=== PATIENT | female | born 1990 | race Caucasian/White ===

== ENCOUNTER 2024-11-15 21:14 | Emergency (ER) | payer OTHER ==
--- OUTSIDE RECORDS SUMMARY | 2024-11-15 21:17 | XMS REPORT | Continuity of Care Document ---
Author Name Unknown Address [address] [facility] [address] [place] [address] [facility] thconnect Address [address] [facility]. 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 Name Role Phone Anselmo Ying MD Primary Care Physician [phone] JILLIAN KNOX Attending Clinician Kesha Ochoa MD, Lottie Attending Clinician [phone] Dash Johnson CMA Attending Clinician Katie Erazo MA Attending Clinician Kesha Rodriguez RN, Gino Attending Clinician ANSELMO Dang Attending Clinician Unavailable MILTON YIN Attending Clinician Unavailable Libby Flores APRN Attending Clinician [phone] Zakiya Lima RN Attending Clinician Unavailable ELLEN AHN Attending Clinician Unavailable Jeannette Keating Attending Clinician Unavailable Ho_K Attending Clinician Unavailable REX LEYVA Attending Clinician Unavailable TIM WHITE Attending Clinician Unavailable Ho_K Admitting Clinician Unavailable Physician, No Primary or Family Admitting Clinic noel Unavailable Payers Payer Name Policy Type Policy Number Effective Date Expirati on Date Source [place] [id number] 2024 00:00:00 2024 00:00:00 [facility] MEDICAID [id number] 2024 00:00:00 OPEN ACCESS AET[employer] SELECT EPO [id number] 2022 00:00:00 OTHER CI [id number] [employer]ET[employer] [id number] 2021 00:00:00 [employer] Hmo [id number] 2021 00:00:00 [facility] Medicaid [id number] 2011 00:00:00 [facility] Problems Condition Name Condition Details Condition Category Status Onset Date Resolution Date Last Treatment Date Treating Clinician Comments Source No known active problems No known active problems Disease [facility] Pain of upper abdomen Problem Active [facility] Allergies, Adverse Reactions, Alerts Allergy Name Allergy Type Status Severity Reaction(s) Onset Date Inactive Date Treating Clinician Comments Source No Known Allergie s DA Active U 04-06 00:00: 00 [facility] No Known Allergie s DA Active U 04-06 00:00: 00 [facility] No Known Allergie s DA Active U 05-17 00:00: 00 [facility] No Known Drug Allergie s DA Active [facility] Social History Social Habit Start Date Stop Date Quantity Comments Source Gender identity 2024-08-17 12:26:14 Identifies as female gender (finding) [facility] Sexual orientation 2024-08-17 12:26:14 [facility] History of tobacco use [facility] ASSERTION Not [facility] History of Occupation [facility] History of Social function 2024-08-17 00:00:00 2024-08-17 00:00:00 [facility] Education 2024-08-17 00:00:00 2024-08-17 00:00:00 21 [facility] Tobacco use and exposure 2024-08-17 00:00:00 2024-08-17 00:00:00 Smokeless tobacco non-user [facility] Alcoholic beverage intake 2024-08-17 00:00:00 2024-08-17 00:00:00 .57 /d [facility] Sex 2024-06-26 14:45:59 2024-06-26 14:45:59 Female (finding) [facility] Exposure to SARS-CoV-2 (event) 2022-11-30 00:00:00 2022-12-10 13:10:00 Not sure [facility] Alcohol intake 2022-12-10 00:00:00 2022-12-10 00:00:00 Current drinker of alcohol (finding) [facility] History SDOH Alcohol Frequency 2022-10-23 00:00:00 2022-10-23 00:00:00 5 [facility] History SDOH Alcohol Std Drinks 2022-10-23 00:00:00 2022-10-23 00:00:00 1 [facility] History SDOH Alcohol Binge 2022-10-23 00:00:00 2022-10-23 00:00:00 1 [facility] Sex assigned at 1990 00:00:00 1990 00:00:00 [facility] Smoking Status Start Date Stop Date Source Never smoked tobacco [facility] Medications Ordered Medication Name Filled Medication Name Start Date Stop Date Current Medication? Ordering Clinician Indication Dosage Frequency Signature (SIG) Comments Components Source omeprazole (PriLOSEC) [address] capsule omeprazole (PriLOSEC) [address] capsule 2023-10 00:00: 00 09-01 23:59 :00 Yes [id number] 20mg Q.5D Take 1 capsule (20 mg) by mouth in the morning and at bedtime for 14 days. Do not crush or chew. [facility] metroNIDAZO LE (Flagyl) 500 MG tablet metroNIDAZO LE (Flagyl) 500 MG tablet 2023-10 00:00: 00 09-01 23:59 :00 No [id number] 500mg Q.[id number] 3D Take 1 tablet (500 mg) by mouth in the morning, at noon, and at bedtime for 14 days. [facility] clarithromy pooja (Biaxin) 500 MG tablet clarithromy pooja (Biaxin) 500 MG tablet 2023-10 00:00: 00 09-01 23:59 :00 No [id number] 500mg Q.5D Take 1 tablet (500 mg) by mouth in the morning and at bedtime for 14 days. [facility] fluticasone (Flonase) 50 MCG/ACT nasal spray fluticasone (Flonase) 50 MCG/ACT nasal spray 2023-10 00:00: 00 08-17 23:59 :00 No [id number] 2{spray } QD Administer 2 sprays into each nostril in the morning. Shake gently. Before first use, prime pump. After use, clean tip and replace cap.. [facility] lisinopril 10 MG tablet lisinopril 10 MG tablet 2023-10 00:00: 00 02-13 23:59 :00 No 10mg QD Take 1 tablet (10 mg) by mouth in the morning. [facility] benzonatate (Tessalon) 100 MG capsule benzonatate (Tessalon) 100 MG capsule 2023-10 00:00: 00 09-16 23:59 :00 No [id number] 100mg Q.[id number] 3D Take 1 capsule (100 mg) by mouth if needed in the morning, at noon, and at bedtime for cough. Do not crush or chew. [facility] cetirizine (ZyrTEC) 10 MG tablet 01-07 00:00: 00 Yes [id number] TAKE 1 TABLET BY MOUTH 1 TIME EACH [address] [facility] fluticasone (Flonase) 50 MCG/ACT nasal spray 12-10 00:00: 00 12-10 05:59 :00 No [id number] 1{spray } Q.5D Administer 1 spray into each nostril in the morning and 1 spray in the evening. Shake gently. Before first use, prime pump. After use, clean tip and replace cap.. [facility] cetirizine (ZyrTEC) 10 MG tablet 12-10 00:00: 00 01-10 04:59 :00 No [id number] 10mg QD Take 1 tablet (10 mg total) by mouth 1 (one) time each day. [facility] olopatadine (Pataday) 0.2 % ophthalmic solution 12-10 00:00: 00 12-16 05:59 :00 No [id number] 1[drp] QD Administer 1 drop into the left eye 1 (one) time each day for [address] [facility] lisinopril 5 MG tablet 10-23 00:00: 00 01-22 04:59 :00 No [id number] 5mg QD Take 1 tablet (5 mg total) by mouth 1 (one) time each day. [facility] Promethazin e Hcl Promethazin e Hcl 05-05 01:33: 00 Yes 25 Every 6 Hours [facility] Famotidine (Pepcid) 20 Mg TABLET Famotidine (Pepcid) 20 Mg TABLET 05-05 01:23: 00 Yes 20 Every 12 Hours [facility] Immunizations Ordered Immunization Name Filled Immunization Name Date Status Comments Source Influenza, injectable, quadrivalent, preservative free (afluria, fluarix, flulaval, fluzone) 2022-10-23 00:00:00 Completed [facility] 2022-10-23 00:00:[address] [facility] Influenza, injectable, quadrivalent, preservative free (afluria, fluarix, flulaval, fluzone) 2022-10-23 00:00:00 Completed [facility] Tdap 2022-10-23 00:00:[address] [facility] Influenza, injectable, quadrivalent, preservative free (afluria, fluarix, flulaval, fluzone) 2022-10-23 00:00:00 Completed [facility] 2022-10-23 00:00:[address] [facility] Influenza, injectable, quadrivalent, preservative free (afluria, fluarix, flulaval, fluzone) 2022-10-23 00:00:00 Completed [facility] 2022-10-23 00:00:00 Completed [facility] Influenza, injectable, quadrivalent, preservative free (afluria, fluarix, flulaval, fluzone) 2022-10-23 00:00:00 [facility]pleted [facility] Tdap 2022-10-23 00:00:00 Completed [facility] Influenza, injectable, quadrivalent, preservative free (afluria, fluarix, flulaval, fluzone) 2022-10-23 00:00:00 Completed [facility] Tdap 2022-10-23 00:00:00 Completed [facility] Influenza, injectable, quadrivalent, preservative free (afluria, fluarix, flulaval, fluzone) 2022-10-23 00:00:00 Completed [facility] Tdap 2022-10-23 00:00:00 Completed [facility] Influenza, injectable, quadrivalent, preservative free (afluria, fluarix, flulaval, fluzone) Unknown Completed [facility] Tdap Unknown Completed [facility] Vital Signs Vital Name Observation Time Observation Value Comments S ource Systolic blood pressure 2024-08-17 12:49:00 143 mm[Hg] [facility] Diastolic blood pressure 2024-08-17 12:49:00 94 mm[Hg] [facility] [employer] Heart rate 2024-08-17 12:02:00 72 /min [facility] Body temperature 2024-08-17 12:02:00 36.83 Ashley [facility] Respiratory rate 2024-08-17 12:02:00 18 /min [facility] Body height 2024-08-17 12:02:00 158.5 cm [facility] Body weight 2024-08-17 12:02:00 81.829 kg [facility] BMI 2024-08-17 12:02:00 32.57 kg/m2 [facility] Oxygen saturation in Arterial blood by Pulse oximetry 2024-08-17 12:02:00 98 /min [facility] Systolic blood pressure 2022-10-23 17:08:00 138 mm[Hg] [facility] Diastolic blood pressure 2022-10-23 17:08:00 82 mm[Hg] [facility] Heart rate 2022-10-23 17:08:00 95 /min [facility] Body temperature 2022-10-23 17:08:[address] [facility] Body height 2022-10-23 17:08:00 160 cm [facility] weight 2022-10-23 17:08:00 79.742 kg [facility] BMI 2022-10-23 17:08:00 31.14 kg/m2 [facility] Oxygen saturation in Arterial blood by Pulse oximetry 2022-10-23 17:08:00 99 /min [facility] Oxygen saturation by Pulse oximetry 2022-05-05 01:34:00 99 /min [facility] Oxygen saturation by Pulse oximetry 2022-05-04 23:26:00 100 /min [facility] Height 2022-05-04 23:26:00 160.357474 cm [facility] Weight 2022-05-04 23:26:00 77.827827 kg [facility] BMI (Body Mass Index) 2022-05-04 23:26:00 30.1 kg/m2 [facility] Procedures Procedure Date / Time Performed Performing Clinician Source COMPREHENSIVE METABOLIC PANEL 2024-08-17 13:01:00 Lottie Ochoa [facility] LIPID PANEL 2024-08-17 13:01:00 Lottie Ochoa [facility] HEMOGLOBIN A1C 2024-08-17 13:01:00 Lottie Ochoa [facility] CBC AND DIFFERENTIAL 2024-08-17 13:01:00 Doris Ochoa [facility] H. PYLORI BREATH TEST 2024-08-17 13:01:00 Asha Ochoa [facility] TSH REFLEX TO T4F 2024-08-17 13:01:00 Mata Ochoa [facility] CBC and differential 2024-08-17 00:00:00 [facility] Comprehensive metabolic panel 2024-08-17 00:00:00 [facility] Lipid panel 2024-08-17 00:00:00 [facility] Hemoglobin A1c 2024-08-17 00:00:00 [facility] TSH REFLEX TO T4F 2024-08-17 00:00:00 [facility] Celiac reflex panel 2024-08-17 00:00:00 [facility] H. pylori breath test 2024-08-17 00:00:00 [facility] CALPROTECTIN STOOL 2024-08-17 00:00:00 [facility] Ear cerumen removal 2024-08-17 00:00:00 [facility] Computed tomography of abdomen and pelvis with contrast 2022-05-04 00:00:00 [facility] X-ray of chest, two views 2018-06-20 00:00:00 Delfin LEE [facility] Plan of Care Planned Activity Planned Date Details Comments Source Instructions Abdominal Pain, Adult, Ukiu-zc-Dygy [facility] Encounters Start Date/Time End Date/Time Encounter Type Admission Type Attending Clinicians Care Facility Care Department Encounter ID Source 2024-08-22 20:16:15 Outpatient JILLIAN KNOX [facility] H[facility] [id number] [facility] 2023-04-21 14:06:11 Outpatient [facility] [id number] [facility] 2023-04-08 07:51:51 Outpatient [facility] [id number] [facility] 2023-02-01 13:08:37 Outpatient IBNS IBNS [id number] Jose Antonio Feliberto 2023-01-30 20:10:23 Outpatient IBNS IBNS [id number] Jose Antonio Feliberto 2023-01-30 18:19:57 Outpatient IBNS IBNS [id number] Jose Antonio Feliberto 2022-12-10 13:07:11 Outpatient [facility] [id number] [facility] 2022-11-20 08:31:29 Outpatient [facility] [id number] [facility] 2022-10-28 09:20:49 Outpatient [facility] [id number] [facility] 2022-10-27 15:50:00 Outpatient [facility] [id number] [facility] 2022-10-23 10:58:47 Outpatient [facility] [id number] [facility] 2022-10-15 15:54:19 Outpatient [facility] [id number] [facility] 2022-08-10 18:51:32 Outpatient IBNS IBNS [id number] Jose Antonio Feliberto 2024-09-13 00:00:00 2024-09-19 08:32:01 Refill DonLottie araujo [facility] 1.2.840.114 [id number] [id number] [id number] [facility] 2024-08-21 00:00:00 2024-08-21 13:30:21 Telephone JohnsonDash witt Deborath [facility] 1.2.840.114 [id number] [id number] [id number] [facility] 2024-08-18 00:00:00 2024-08-18 16:40:38 Telephone Katie Kidd Alejandra [facility] 1.2.840.114 [id number] [id number] [id number] [facility] 2024-08-17 11:30:00 2024-08-17 12:51:05 Office Visit Don Lottie [facility] 1.2.840.114 350.1.13.65 [id number] [id number] [facility] 2023-11-24 00:00:00 2023-11-24 14:11:02 Patient Outreach Gino Rodriguez [facility] [id number] 350.1.13.58 9.2.7.2.[id number] [facility] 2023-06-24 00:00:00 2023-06-24 00:00:00 Patient Outreach Gino Rodriguez [facility] 1.2.840.114 350.1.13.58 9.2.7.2.[id number] [facility] 2023-04-22 13:15:00 2023-04-22 13:15:00 Outpatient ANSELMO YING [facility] [id number] [facility] 2023-04-21 00:00:00 2023-04-21 00:00:00 Patient Outreach Gino Rodriguez [facility] 1.840.114 350.1.13.58 9.2.7.2.[id number] [facility] 2022-12-14 08:00:00 2022-12-14 08:00:00 Outpatient MILTON YIN [facility] [id number] [facility] 2022-12-11 10:30:00 2022-12-11 10:30:00 Outpatient ANSELMO YING [facility] [id number] [facility] 2022-12-10 13:15:00 2022-12-10 13:25:39 Telemedici Libby Pan [facility] 1.840.114 350.1.13.58 9.2.7.2.[id number] [facility] 2022-12-10 00:00:00 2022-12-10 00:00:00 Nurse Triage Zakiya Lima Lisa KIT [facility] 1.840.114 350.1.13.58 9.2.7.2.[id number] [facility] 2022-11-20 16:15:00 2022-11-20 16:15:00 Outpatient ELLEN AHN [facility] [id number] [facility] 2022-10-27 00:00:00 2022-10-27 00:00:00 Patient Outreach Jeannette Keating Jessica [facility] 1..840.114 350.1.13.58 9.2.7.2.[id number] [facility] 2022-10-27 00:00:00 2022-10-27 00:00:00 Patient Outreach Jeannette Keating Jessica [facility] 1.840.114 350.1.13.58 9.2.7.2.[id number] [facility] 2022-10-23 11:15:00 2022-10-23 11:32:20 Office Visit Anselmo Ying [place] [id number] 350.1.13.58 9.2.7.2.[id number] [facility] 2022-10-23 07:00:00 2022-10-23 07:00:00 Outpatient ANSELMO YING [facility] [id number] [facility] 2022-07-20 00:00:00 2022-07-20 00:00:00 Outpatient Ho_K VFP VFP [id number] [facility] 2022-07-17 00:00:00 2022-07-17 00:00:00 Outpatient Ho_K VFP VFP [id number] [facility] 2022-05-04 23:36:00 2022-05-05 01:38:00 Outpatient 1 REX LEYVA [facility] [id number] [facility] 2022-05-04 23:36:00 2022-05-05 01:38:00 Departed Emergency Room [facility] [id number] [facility] 2022-05-04 22:36:00 2022-05-05 00:38:00 Emergency [facility] [id number] [facility] 2020-05-29 00:00:00 2020-05-29 00:00:00 Outpatient [facility] [id number] [facility] 2020-04-06 18:36:00 2020-04-08 04:17:49 Inpatient HCABM FERS [id number] [facility] 2018-06-20 17:58:00 2018-06-20 20:14:00 Departed Emergency Room 1 TIM WHITE [facility] [id number] [facility] Results Test Description Test Time Test Comments Results Result Co mments Source [id number] 06:02:00* Test Item Value Reference Range Interpretation Comme [facility] HEMOGLOBIN A1C (test code = 4548-4) See_Comment H For someone with out known diabetes, a hemoglobin A1c value between 5.7% and 6.4% is consistent withprediabetes and should be confirmed with a follow-up test. For someone with known diabetes, a value <7%indicates that their diabetes is well controlled. [id number] should be individualized based on duration ofdiabetes, age, comorbid conditions, and otherconsiderations. This assay result is consistent with an increased riskof diabetes. Currently, no consensus exists regarding use ofhemoglobin A1c for diagnosis of diabetes for children. [Automated message] The system which generated this result transmitted reference range: <5.7 % of total Hgb. The reference range was not used to interpret this result as normal/abnormal. WANDER (test code = WANDER) Lab Interpretation (test code = 83386-4) Abnormal [facility] [id number] 04:49:00* Test Item Value Reference Range Interpretation Comme [facility] GLUCOSE (test code = 2345-7) 87 mg/dL 65-139 ? ? ? Non-fastin g reference interval BUN (test code = 3094-0) 13 mg/dL 7-25 CREATININE SERUN (test code = 2160-0) 0.54 mg/dL 0.50-0.97 EGFR (test code = 45481-7) See_Comment [Automated [employer]] The system which generated this result transmitted reference range: > OR = 60 mL/min/1.73m2. The reference range was not used to interpret this result as normal/abnormal. BUN/CREATININE RATIO (test code = 3097-3) SEE NOTE: See_Comment ? Not Repor lavonne: BUN and Creatinine are within ? reference range. ? ? [Automated message] The system which generated this result transmitted reference range: 6 - 22 (calc). The reference range was not used to interpret this result as normal/abnormal. SODIUM (test code = 2951-2) 139 mmol/L 135-146 POTASSIUM (test code = 2823-3) 4.2 mmol/L 3.5-5.3 CHLORIDE (test code = 2074-0) 102 mmol/L 98-110 CARBON DIOXIDE (test code = 2027-) 23 mmol/L 20-32 CALCIUM (test code = 47259-6) 10 mg/dL 8.6-10.2 PROTEIN TOTAL (test code = 2885-2) 8 g/dL 6.1-8.1 ALBUMIN (test code = 1751-7) 4.9 g/dL 3.6-5.1 GLOBULIN (test code = 33272-6) See_Comment [Automated [employer]] The system which generated this result transmitted reference range: 1.9 - 3.7 g/dL (calc). The reference range was not used to interpret this result as normal/abnormal. A/G RATIO (test code = 1759-0) See_Comment [[employer]] The system which generated this result transmitted reference range: 1.0 - 2.5 (calc). The reference range was not used to interpret this result as normal/abnormal. BILIRUBIN TOTAL (test code = 1974-) 0.5 mg/dL 0.2-1.2 ALKALINE PHOSPHATASE, SERUM (test code = 6768-6) 57 U/L 31-125 AST (test code = 1920-8) 21 U/L 10-30 ALT (test code = 1742-6) 35 U/L 6-29 H WANDER (test code = WANDER) Lab Interpretation (test code = 65595-5) Abnormal [facility] [id number] 04:49:00* Test Item Value Reference Range Interpretation Comme nts CHOLESTEROL (test code = 2092-3) 197 mg/dL <=200 HDL CHOLESTEROL (test code = 2084-9) 51 mg/dL See_Comment [Automated [employer]] The system which generated this result transmitted reference range: > OR = 50. The reference range was not used to interpret this result as normal/abnormal. TRIGLYCERIDE (test code = 2571-8) 129 mg/dL <=150 LDL-C (test code = 87385-8) mg/dL (calc) H Reference range: <100 Desirable range <100 mg/dL for primary prevention; ?<70 mg/dL for patients with CHD or diabetic patients with > or = 2 CHD risk factors. LDL-C is now calculated using the Yusuf-Greco calculation, which is a validated novel method providing better accuracy than the Friedewald equation in the estimation of LDL-C. Yusuf SS et al. BRENDON. 2013;310(19): 4175-0784 (http://education.Vaccsys.com/f aq/LLL320) CHOL/HDLC RATIO (test code = 9830-1) See_Comment [Automated [employer]] The system which generated this result transmitted reference range: <5.0 (calc). The reference range was not used to interpret this result as normal/abnormal. NON HDL CHOLESTEROL (test code = 91620-0) See_Comment H For patien ts with diabetes plus 1 major ASCVD risk factor, treating to a non-HDL-C goal of <100 mg/dL (LDL-C of <70 mg/dL) is considered a therapeutic option. [Automated message] The system which generated this result transmitted reference range: <130 mg/dL (calc). The reference range was not used to interpret this result as normal/abnormal. WANDER (test code = WANDER) Lab Interpretation (test code = 90834-3) [facility]normal [facility] [id number] 04:08:00* Test Item Value Reference Range Interpretation Comme nts WBC (test code = 6690-2) See_Comment [Automated [employer]] The system which generated this result transmitted reference range: 3.8 - 10.8 Thousand/uL. The reference range was not used to interpret this result as normal/abnormal. RBC (test code = 789-8) See_Comment [Automated [employer]] The system which generated this result transmitted reference range: 3.80 - 5.10 Million/uL. The reference range was not used to interpret this result as normal/abnormal. HEMOGLOBIN (test code = 718-7) 13.4 g/dL 11.7-15.5 HEMATOCRIT (test code = 4544-3) 40.9 % 35.0-45.0 MCV (test code = 787-2) 97.8 fL 80.0-100.0 MCH (test code = 785-6) 32.1 pg 27.0-33.0 MCHC (test code = 786-4) 32.8 g/dL 32.0-36.0 For adults, a sl ight decrease in the calculated MCHCvalue (in the range of 30 to 32 g/dL) is most likelynot clinically significant; however, it should beinterpreted with caution in correlation with otherred cell parameters and the patient's clinicalcondition. RDW (test code = 788-0) 12.4 % 11.0-15.0 PLATELETS (test code = 777-3) See_Comment [Automated messa ge] The system which generated this result transmitted reference range: 140 - 400 Thousand/uL. The reference range was not used to interpret this result as normal/abnormal. MPV (test code = 776-5) 10.8 fL 7.5-12.5 ABSOLUTE NEUTROPHILS (test code = 751-8) See_Comment [Automated m essage] The system which generated this result transmitted reference range: 1,500 - 7,800 cells/uL. The reference range was not used to interpret this result as normal/abnormal. ABSOLUTE LYMPHOCYTES (test code = 731-0) See_Comment [Automated m essage] The system which generated this result transmitted reference range: 850 - 3,900 cells/uL. The reference range was not used to interpret this result as normal/abnormal. MONOCYTES ABSOLUTE (test code = 742-7) See_Comment [Automated m essage] The system which generated this result transmitted reference range: 200 - 950 cells/uL. The reference range was not used to interpret this result as normal/abnormal. EOSINOPHILS ABSOLUTE (test code = 711-2) See_Comment [Automated m essage] The system which generated this result transmitted reference range: 15 - 500 cells/uL. The reference range was not used to interpret this result as normal/abnormal. BASOPHILS ABSOLUTE (test code = 704-7) See_Comment [Automated m essage] The system which generated this result transmitted reference range: 0 - 200 cells/uL. The reference range was not used to interpret this result as normal/abnormal. NEUTROPHILS (test code = 770-8) 63.4 % LYMPHOCYTES % (test code = 736-9) 28.5 % MONOCYTES (test code = 5905-5) 6.9 % EOSINOPHILS (test code = 713-8) 0.8 % BASOPHILS (test code = 706-2) 0.4 % WANDER (test code = WANDER) [facility] REFLEX TO [id number] 02:44:00* Test Item Value Reference Range Interpretation Comme nts TSH (test code = 3016-3) mIU/L ?Referen ce Range ?> or = 20 Years ?0.40-4.50 ? Ranges ?First trimester ? ?0.26-2.66 ?Second trimester ? 0.55-2.73 ?Third trimester ? ?0.43-2.91 WANDER (test code = WANDER) [facility] NetworkUrine urobilinogen measurement by test strip (mass/volume) 2022-05-05 00:17:00* Test Item Value Reference Range Interpretation Comme nts Urine Urobilinogen (test cod e = 59125-7) 1 0.2-1 [facility] total bilirubin expdfcgxv6238-20-97 00:17:00* Test Item Value Reference Range Interpretation Comme nts Urine Bilirubin (test code = 1977-8) NEGATIVE NEGATIVE [facility] HospitalUrine erythrocytes bdtiuskrr6588-90-73 00:17:00* Test Item Value Reference Range Interpretation Comme nts Urine Blood (test code = 64040-9) NEGATIVE NEGATIVE [facility] HospitalAutomated urine sediment leukocyte count by microscopy (number/high power field)2022-05-05 00:17:00* Test Item Value Reference Range Interpretation Comme nts Urine WBC (test code = 5821-4) 0-5 0-5 [facility] HospitalErythrocytes detection in urine sediment by light fagxiipbvr0447-63-55 00:17:00* Test Item Value Reference Range Interpretation Comme nts Urine RBC (test code = 73591-0) 0-5 0-5 [facility] HospitalBacteria detection in urine sediment by light vpgqlrtuds6981-44-56 00:17:00* Test Item Value Reference Range Interpretation Comme nts Urine Bacteria (test code = 90060-6) MANY NONE [facility] HospitalEpithelial cells detection in urine sediment by light gssszfbfwa9399-98-44 00:17:00* Test Item Value Reference Range Interpretation Comme nts Urine Epithelial Cells (test code = 35599-2) MODERATE NONE [facility] HospitalRenal epithelial cells detection in urine sediment by light kwgxuwbcpz7304-79-67 00:17:00* Test Item Value Reference Range Interpretation Comme [facility] Urine Renal Epithelial Cells (test code = 63695-1) RARE NONE [facility] HospitalAmorphous sediment detection in urine sediment by light ydqhsnuifx9271-40-03 00:17:00* Test Item Value Reference Range Interpretation Comme nts Urine Amorphous Sediment (te st code = 8246-1) MANY FEW [facility] HospitalUrine human chorionic gonadotropin (hCG) frcleclwc5240-64-50 00:17:00* Test Item Value Reference Range Interpretation Comme nts Urine Test (test c ode = 2106-3) NEGATIVE NEGATIVE [facility] HospitalUrine color fkscvtwgjxeqp4131-31-42 00:17:00 * Test Item Value Reference Range Interpretation Comme nts Urine Color (test code = 5778-6) YELLOW YELLOW [facility] HospitalUrine utiwgtz9604-40-60 00:17:00* Test Item Value Reference Range Interpretation Comme nts Urine Clarity (test code = 44364-1) SL CLOUDY CLEAR [facility] Center[facility] gravity of Urine by Test strip 2022-05-05 00:17:00* Test Item Value Reference Range Interpretation Comme nts Urine Specific [place] (test code = 5811-5) 1.020 1.010-1.025 [facility] HospitalUrine pH measurement by automated test strip 2022-05-05 00:17:00* Test Item Value Reference Range Interpretation Comme nts Urine pH (test code = 73801-6) 7.5 5-7 [facility] HospitalUrine leukocyte esterase detection by automated test aiiat9570-07-47 00:17:00* Test Item Value Reference Range Interpretation Comme nts Urine Leukocyte Esterase (te st code = 79450-3) NEGATIVE NEGATIVE [facility] HospitalUrine nitrite detection by automated test atjvw3303-67-17 00:17:00* Test Item Value Reference Range Interpretation Comme nts Urine Nitrite (test code = 85814-3) NEGATIVE NEGATIVE [facility] HospitalUrine protein detection by automated test snmqa7789-38-11 00:17:00* Test Item Value Reference Range Interpretation Comme nts Urine Protein (test code = 38030-7) NEGATIVE NEGATIVE [facility] HospitalUrine glucose detection by automated test gsnix0005-35-04 00:17:00* Test Item Value Reference Range Interpretation Comme nts Urine Glucose (UA) (test cod e = 78343-2) NEGATIVE NEGATIVE [facility] HospitalUrine ketones detection by automated test ewmpp6168-54-32 00:17:00* Test Item Value Reference Range Interpretation Comme nts Urine Ketones (test code = 61178-5) NEGATIVE NEGATIVE [facility] HospitalCT ABDOMEN/PELVIS O2679-78-92 00:03:00 [facility] 1990 Sex: [place] [address] Patient Name: KONSTANTIN RDZ MR #: [id number] : 1990 Age/Sex: 31/F Req #: [id number] [facility] Physician: Ordered by: REX LEYVA DO Report #: [id number] Location: ER Room/Bed: Procedure: [id number] CT/CT ABDOMEN/PELVIS W Exam Date: 05/04/22 Exam Time: 2330 REPORT STATUS: Signed INDICATION: RUQ pain PROCEDURE: CT ABDOMEN/PELVIS W Dose reduction techniques were utilized. Sagittal and Coronal reformats were submitted. FINDINGS: The lung bases are clear. The heart size is normal. ABDOMEN: There is diffuse mild hepatic steatosis. No suspect liver lesions detected. The spleen, adrenal glands, kidneys, pancreas, gallbladder and biliary tree are unremarkable. There is no aneurysm, adenopathy, ascites or obstruction. Very slightly increased enhancement isseen in the region of the pyloric channel. Pelvis: The appendix is adjacent to the cecum and normal. The terminal ileum is normal. The bladder contains no filling defects. The uterus is anteverted tothe right. There is some dense material likely reflecting fallopian tube occlusion. Other densitieswithin the uterus may be postoperative. There is fluid in the endometrial canal. There is likely a c orpus luteum in the left ovary. No obstruction or adenopathy detected. No aggressive bone lesions detected. CONCLUSION: 1. Slightly atypical appearance of the pyloric channel. If symptoms persists endoscopic evaluation may be warranted. 2. Normal gallbladder and other right-sided structures. Likely recently status post left-sided ovulation. No definite explanation for right- sided pain detected. Signed by: Josh Sauceda on 05/05/2022 12:03 AM Dictated By: Josh Sauceda MD 0006 Transcribed By: OMAYRA on 05/05/22 0003 COPY TO: REX LEYVA leukocytes automated count (number/volume)2022-05-04 23:32:00* Test Item Value Reference Range Interpretation Comme [facility] White Blood Count (test code = 6690-2) 7.62 4.8-10.8 [facility] HospitalBlood erythrocytes automated count (number/volume)2022-05-04 23:32:00* Test Item Value Reference Range Interpretation Comme [facility] Red Blood Count (test code = 789-8) 3.94 3.6-5.1 [facility] HospitalBlood hemoglobin measurement (moles/volume) 2022-05-04 23:32:00* Test Item Value Reference Range Interpretation Comme [facility] Hemoglobin (test code = 94531-7) 13.1 12.0-16.0 [facility] HospitalAutomated blood hematocrit (volume fraction) 2022-05-04 23:32:00* Test Item Value Reference Range Interpretation Comme [facility] Hematocrit (test code = 4544-3) 38.4 34.2-44.1 [facility] HospitalAutomated erythrocyte mean corpuscular volume 2022-05-04 23:32:00* Test Item Value Reference Range Interpretation Comme [facility] Mean Corpuscular Volume (devaughn t code = 787-2) 97.5 81-99 [facility] HospitalAutomated erythrocyte mean corpuscular hemoglobin (mass per erythrocyte)2022-05-04 23:32:00* Test Item Value Reference Range Interpretation Comme [facility] Mean Corpuscular Hemoglobin (test code = 785-6) 33.2 28-32 [facility] HospitalAutomated erythrocyte mean corpuscular hemoglobin concentration measurement (mass/volume)2022-05-04 23:32:00* Test Item Value Reference Range Interpretation Comme [facility] Mean Corpuscular Hemoglobin Concent (test code = 786-4) 34.1 31-35 [facility] HospitalRDW MsiEo-Qno6745-77-25 23:32:00* Test Item Value Reference Range Interpretation Comme [facility] Red Cell Distribution Width (test code = 01655-3) 12.2 11.7-14.4 [facility] HospitalAutomated blood platelet count (count/volume) 2022-05-04 23:32:00* Test Item Value Reference Range Interpretation Comme [facility] Platelet Count (test code = 777-3) 306 140-360 [facility] HospitalAutomated blood segmented neutrophil count as percentage of total vbvbiykqkz6395-94-23 23:32:00* Test Item Value Reference Range Interpretation Comme nts Neutrophils (%) (Auto) (test code = 57135-9) 47.3 38.7-80.0 [facility] HospitalAutomated blood lymphocyte count as percentage ot total sakmzklpdh5234-01-74 23:32:00* Test Item Value Reference Range Interpretation Comme nts Lymphocytes (%) (Auto) (test code = 736-9) 42.5 18.0-39.1 [facility] HospitalAutomated blood monocyte count as percentage of total oevrukibkv2538-80-39 23:32:00* Test Item Value Reference Range Interpretation Comme nts Monocytes (%) (Auto) (test c ode = 5905-5) 8.0 4.4-11.3 [facility] HospitalAutomated blood eosinophil count as percentage of total ftrvszqbek1777-41-92 23:32:00* Test Item Value Reference Range Interpretation Comme nts Eosinophils (%) (Auto) (test code = 713-8) 1.4 0.0-6.0 [facility] HospitalAutomated blood basophil count as percentage of total pvdvfbupwm4133-00-24 23:32:00* Test Item Value Reference Range Interpretation Comme nts Basophils (%) (Auto) (test c ode = 706-2) 0.4 0.0-1.0 [facility] HospitalFluoroscopic procedure less than one hour cbtebqxf5677-56-52 23:32:00* Test Item Value Reference Range Interpretation Comme nts IM GRANULOCYTES % (test code = IM GRANULOCYTES %) 0.4 0.0-1.0 [facility] HospitalAutomated blood neutrophil cflxw1594-57-47 23:32:00* Test Item Value Reference Range Interpretation Comme nts Neutrophils # (Auto) (test c ode = 751-8) 3.6 2.1-6.9 [facility] HospitalBlood lymphocytes count (number/volume) 2022-05-04 23:32:00* Test Item Value Reference Range Interpretation Comme nts Lymphocytes # (Auto) (test c ode = 52038-5) 3.2 1.0-3.2 [facility] HospitalBlood monocytes automated count (number/volume)2022-05-04 23:32:00* Test Item Value Reference Range Interpretation Comme nts Monocytes # (Auto) (test code = 742-7) 0.6 0.2-0.8 [facility] HospitalAutomated blood eosinophil mmcwl8213-52-63 23:32:00* Test Item Value Reference Range Interpretation Comme nts Eosinophils # (Auto) (test c ode = 711-2) 0.1 0.0-0.4 [facility] HospitalAutomated blood basophil count (count/volume) 2022-05-04 23:32:00* Test Item Value Reference Range Interpretation Comme nts Basophils # (Auto) (test code = 704-7) 0.0 0.0-0.1 [facility]- XR CHEST 1 [id number] 19:27:00Name: KONSTANTIN CALDWELL [facility] : 1990 Age/S:29 /F [address] [facility] Unit#:[id number] Loc: [place] [address] Phys: Graham Astorga MD Dis Date: PHONE #: [phone] Status: REG ER FAX #: [phone] Exam Date: 04/06/2020 Reason:CHEST PAIN EXAMS: CPT CODE: [id number] XR CHEST 1 V 12717 HISTORY: Chest pain. COMPARISON: None avai lable. Location: TH. No acute infiltrates, effusion or congestion is noted. The cardiac and mediastinal silhouette are within normal limits. IMPRESSION: No acute infiltrates, effusion or congestion. at 1927 Reported and signed by: Rogerio Monroe CC: Graham Astorga MD Technologist: CHUN JUNE CT Trnscrpt Data: 04/06/2020 (1926) t.SDR.TH4 Orig Print D/T: S: 04/06/2020 (1930) PAGE 1 Signed ReportMRI Brain w/o Nbpaupvd7047-23-47 13:10:18Patient: KONSTANTIN CALDWELL Date/Time05/17/2019 12:39 CDTReason for ExamFacial droopReportEXAM: MRI BRAIN WITHOUT CONTRASTINDICATION: Facial droopCOMPARISON: CT head dated May 17, 2019TECHNIQUE: Multiplanar, multisequence MR imaging of the brain was obtained without administration ofintravenous contrast. IV contrast: None.FINDINGS:No restricted diffusion to suggest acute ischemia.The brain parenchyma is normal in signal intensity. The ventricles and sulci are normal in size and shape with no midline shift or mass effect. The basal cisterns are patent. The posterior fossa and fourth ventricle are normal. No intracranial hemorrhage.Intracranial flow voids are normal.The paranasal sinuses and mastoid air cells are clear. The skull base is intact. No calvarial lesions. The orbits and globes are unremarkable.IMPRESSION:1. No acute intracranial abnormality. No acute infarct.LOCATION: R16 Final Dictated by: MD Talavera Melanie CDictated DT/TM: 05/17/2019 1:08 pmSigned by: MD Talavera Melanie CSigned (Electronic Signature): 05/17/2019 1:10 pmCT Brain/Head w/o Qjjzfsox9471-28-63 10:49:14Patient: KONSTANTIN CALDWELL Date/Time05/17/2019 10:32 CDTReason for ExamFacial droopReportEXAM: CT BRAIN WITHOUT CONTRASTINDICATION: Facial droopCOMPARISON: None availableTECHNIQUE: Routine axial noncontrast CT images of the brain were obtained.IV contrast: None.DLP: 718.4 mGy-cmFINDINGS:No intra-axial or extra-axial fluid collections are identified. No acute hemorrhage.There is normal differentiation of the moran and white matter. The ventricles and sulci are normal in size and shape with no midline shift or mass effect. The basal cisterns are patent. The posterior fossa and fourth ventricle are normal.The paranasal sinuses and mastoid air cells are clear. No calvarial lesions.Skull base is intact. Orbits and globes are unremarkable.IMPRESSION:No acute intracranial abnormality. No intracranial hemorrhage.LOCATION: I74Edat CT exam was performed according to our departmentaldose optimization program, which includes automated exposure control, adjustment of the mA and/or kV according to the patient size and/or use of iterative reconstructive technique. Final Dictated by: MD Talavera Melanie CDictated DT/TM: 05/17/2019 10:48 amSigned by: MD Talavera Melanie CSigned (Electronic Signature): 05/17/2019 10:49 amD- Dimer Quantitative (PE/DVT)2018-06-20 19:46:00* Test Item Value Reference Range Interpretation Comme nts D-Dimer Quantitative (PE/DVT ) (test code = 18761-8) 0.37 0.00-0.45 As with all in vitro diagnostic tests, the test results should be interpreted by the physician in conjunction with clinical findings and other test results.Test results are reported in NEW D-dimer units(ug/mLFEU).[facility] 2 JOIUE7834-14-33 19:37:00[facility] [address] [place] [address] PatientName: KONSTANTIN CALDWELL MR #: [id number] : 1990 Age/Sex: 28/F Req #: [id number] Adm Physician: Ordered by: NOLBERTO LEE MD Report #: [id number] Location: ER Room/Bed: Procedure: [id number] DX/CHEST 2 VIEWS Exam Date: 06/20/18 Exam Time: 1918 REPORT STATUS: Signed EXAMINATION: CHEST 2 VIEWS INDICATION: Shortness of breath, chest pain, palpitations COMPARISON: None FINDINGS: PA and lateral views TUBES and LINES: None. LUNGS: Lungs are well inflated. There is no evidence of pneumonia or pulmonary edema. PLEURA: No pleural effusion or pneumothorax. HEART AND MEDIASTINUM:The cardiomediastinal silhouette is unremarkable.. BONES AND SOFT TISSUES: No focal osseous lesions. Soft tissues are unremarkable. UPPER ABDOMEN: No free air under the diaphragm. IMPRESSION: No acute thoracic abnormality. Signed by: Dr. Sierra Driscoll MD on 06/20/2018 7:37 PM Dictated By: SIERRA DRISCOLL MD 36 Transcribed By: MAXIM on 06/20/181936 COPY TO: SWEET,LAIRD A MDCreatine Kinase [id number] 19:05:00* Test Item Value Reference Range Interpretation Comme nts Creatine Kinase MB (test cod e = 43365-7) 0.30 0-5.0 [facility] HospitalTroponin [id number] 19:05:00* Test Item Value Reference Range Interpretation Comme nts Troponin I (test code = PML9856) -0.001 0-0.300 [facility] HospitalUrine IOS0108-55-24 18:55:00* Test Item Value Reference Range Interpretation Comme nts Urine WBC (test code = 5821-4) NONE 0-5 [facility] HospitalUrine AJO2703-94-70 18:55:00* Test Item Value Reference Range Interpretation Comme nts Urine RBC (test code = 81412-8) NONE 0-5 [facility] HospitalUrine Omlvwnai9330-86-96 18:55:00* Test Item Value Reference Range Interpretation Comme nts Urine Bacteria (test code = 04845-5) NONE NONE [facility] HospitalUrine Epithelial Ujkmk3769-59-88 18:55:00* Test Item Value Reference Range Interpretation Comme nts Urine Epithelial Cells (test code = 78997-5) NONE NONE [facility] Centerodium Wmduj6674-84-23 18:49:00* Test Item Value Reference Range Interpretation Comme nts Sodium Level (test code = 2951-2) 137 136-145 [facility] HospitalPotassium Tttfp0087-05-75 18:49:00* Test Item Value Reference Range Interpretation Comme nts Potassium Level (test code = 2823-3) 4.2 3.5-5.1 [facility] HospitalChloride Vflxi2626-98-01 18:49:00* Test Item Value Reference Range Interpretation Comme nts Chloride Level (test code = 2075-0) 103 98-107 [facility] HospitalCarbon Dioxide Sqmer7170-41-09 18:49:00* Test Item Value Reference Range Interpretation Comme nts Carbon Dioxide Level (test c ode = 8-9) 22 22-29 [facility] HospitalAnion Dxf1658-76-30 18:49:00* Test Item Value Reference Range Interpretation Comme nts Anion Gap (test code = 31262-0) 16.2 8-16 H [facility] HospitalBlood Urea Edfpjqqq8931-55-29 18:49:00* Test Item Value Reference Range Interpretation Comme nts Blood Urea Nitrogen (test co de = 3094-0) 14 7-26 [facility] HospitalCreatinine2018-09-10 18:49:00* Test Item Value Reference Range Interpretation Comme nts Creatinine (test code = 2160-0) 0.66 0.57-1.11 [facility] HospitalBUN/Creatinine Iebvb1226-63-91 18:49:00* Test Item Value Reference Range Interpretation Comme nts BUN/Creatinine Ratio (test c ode = 3097-3) 21 6-25 [facility] HospitalEstimat Glomerular Filtration Vtyh4074-95-91 18:49:00* Test Item Value Reference Range Interpretation Comme [facility] Estimat Glomerular Filtratio n Rate (test code = 07269-6) 60- >60 Ranges were taken from the National Kidney Disease Education Program and the National Kidney Foundation literature.Reference ranges:60 or greater: Swqfto86- 59 (for 3 consecutive months): Chronic kidney disease 15 or less: Kidney failure [facility] HospitalGlucose Emlcc9580-32-42 18:49:00* Test Item Value Reference Range Interpretation Comme nts Glucose Level (test code = DNF5676) 94 74-118 [facility] HospitalCalcium Edbmi9010-40-94 18:49:00* Test Item Value Reference Range Interpretation Comme nts Calcium Level (test code = 52960-8) 9.8 8.4-10.2 [facility] HospitalTotal Cblsunfxk5285-92-86 18:49:00* Test Item Value Reference Range Interpretation Comme nts Total Bilirubin (test code = 1975-2) 0.5 0.2-1.2 [facility] HospitalAspartate Amino Transf (AST/SGOT)2018-06-20 18:49:00* Test Item Value Reference Range Interpretation Comme nts Aspartate Amino Transf (AST/ SGOT) (test code = Aspartate Amino Transf (AST/SGOT)) 49 5-34 H [facility] HospitalAlanine Aminotransferase (ALT/SGPT)2018-06-20 18:49:00* Test Item Value Reference Range Interpretation Comme nts Alanine Aminotransferase (AL T/SGPT) (test code = 1742-6) 87 0-55 H [facility] HospitalTotal Dzrdlof7511-43-71 18:49:00* Test Item Value Reference Range Interpretation Comme nts Total Protein (test code = 2885-2) 7.9 6.5-8.1 [facility] HospitalAlbumin2018-09-10 18:49:00* Test Item Value Reference Range Interpretation Comme nts Albumin (test code = 1751-7) 4.5 3.5-5.0 [facility] HospitalGlobulin2018-09-10 18:49:00* Test Item Value Reference Range Interpretation Comme nts Globulin (test code = 86786-2) 3.4 2.3-3.5 [facility] HospitalAlbumin/Globulin Qcdha3136-29-70 18:49:00* Test Item Value Reference Range Interpretation Comme nts Albumin/Globulin Ratio (test code = 1759-0) 1.3 0.8-2.0 [facility] HospitalAlkaline Dwcxhfngafq0949-08-75 18:49:00* Test Item Value Reference Range Interpretation Comme nts Alkaline Phosphatase (test c ode = 6768-6) 46 40-150 [facility] HospitalCreatine Izgnkf3316-46-21 18:49:00* Test Item Value Reference Range Interpretation Comme nts Creatine Kinase (test code = 2157-6) 41 29-168 [facility] HospitalUrine Idaip4410-86-50 18:47:00* Test Item Value Reference Range Interpretation Comme nts Urine Color (test code = 5778-6) YELLOW YELLOW [facility] HospitalUrine Oxfxpzi5500-43-69 18:47:00* Test Item Value Reference Range Interpretation Comme nts Urine Clarity (test code = 32845-7) CLEAR CLEAR [facility] HospitalUrine Specific Dbnujay9320-69-88 18:47:00* Test Item Value Reference Range Interpretation Comme nts Urine Specific [place] (test code = 5811-5) 1.025 1.010-1.025 [facility] HospitalUrine nZ5867-03-89 18:47:00* Test Item Value Reference Range Interpretation Comme nts Urine pH (test code = 92076-5) 5 5-7 [facility] HospitalUrine Leukocyte Rvfamgnf0542-30-06 18:47:00* Test Item Value Reference Range Interpretation Comme nts Urine Leukocyte Esterase (te st code = 5799-2) NEGATIVE NEGATIVE [facility] HospitalUrine Qitvvjd5824-28-75 18:47:00* Test Item Value Reference Range Interpretation Comme nts Urine Nitrite (test code = 70002-1) NEGATIVE NEGATIVE [facility] HospitalUrine Rcphlbe9027-28-63 18:47:00* Test Item Value Reference Range Interpretation Comme nts Urine Protein (test code = 5804-0) NEGATIVE NEGATIVE [facility] HospitalUrine Glucose (UA)2018-06-20 18:47:00* Test Item Value Reference Range Interpretation Comme nts Urine Glucose (UA) (test cod e = 2349-9) NEGATIVE NEGATIVE [facility] HospitalUrine Dzpsyja9965-50-98 18:47:00* Test Item Value Reference Range Interpretation Comme nts Urine Ketones (test code = 91032-0) NEGATIVE NEGATIVE [facility] HospitalUrine Zwbfunazklrt5768-70-15 18:47:00* Test Item Value Reference Range Interpretation Comme nts Urine Urobilinogen (test cod e = 84312-3) 0.2 0.2-1 [facility] HospitalUrine Fdnhpnryw2973-68-42 18:47:00* Test Item Value Reference Range Interpretation Comme nts Urine Bilirubin (test code = 1978-6) NEGATIVE NEGATIVE [facility] HospitalUrine Nqrhk2207-68-28 18:47:00* Test Item Value Reference Range Interpretation Comme nts Urine Blood (test code = 42187-4) NEGATIVE NEGATIVE [facility] HospitalUrine Baos6915-54-22 18:47:00* Test Item Value Reference Range Interpretation Comme nts Urine Test (test c ode = 2106-3) NEGATIVE NEGATIVE [facility] HospitalWhite Blood Ajqdv9834-67-61 18:35:00* Test Item Value Reference Range Interpretation Comme nts White Blood Count (test code = 6690-2) 7.64 4.8-10.8 [facility] Blood [id number] 18:35:00* Test Item Value Reference Range Interpretation Comme [facility] Red Blood Count (test code = 789-8) 4.16 3.6-5.1 [facility] HospitalHemoglobin2018-09-10 18:35:00* Test Item Value Reference Range Interpretation Comme nts Hemoglobin (test code = 42041-1) 13.9 12.0-16.0 [facility] HospitalHematocrit2018-09-10 18:35:00* Test Item Value Reference Range Interpretation Comme [facility] Hematocrit (test code = 4544-3) 39.5 34.2-44.1 [facility]Mean Corpuscular [id number] 18:35:00* Test Item Value Reference Range Interpretation Comme [facility] Mean Corpuscular Volume (devaughn t code = 787-2) 95.0 81-99 [facility] Corpuscular [id number] 18:35:00* Test Item Value Reference Range Interpretation Comme [facility] Mean Corpuscular Hemoglobin (test code = 785-6) 33.4 28-32 H [facility] HospitalMean Corpuscular Hemoglobin [id number] 18:35:00* Test Item Value Reference Range Interpretation Comme [facility] Mean Corpuscular Hemoglobin Concent (test code = 786-4) 35.2 31-35 H [facility] Cell Distribution [id number] 18:35:00* Test Item Value Reference Range Interpretation Comme [facility] Red Cell Distribution Width (test code = 51508-9) 12.1 11.7-14.4 [facility] HospitalPlatelet [id number] 18:35:00* Test Item Value Reference Range Interpretation Comme [facility] Platelet Count (test code = 777-3) 276 140-360 [facility] HospitalNeutrophils (%) (Auto)2018-06-20 18:35:00* Test Item Value Reference Range Interpretation Comme nts Neutrophils (%) (Auto) (test code = 12325-7) 60.0 38.7-80.0 [facility] HospitalLymphocytes (%) (Auto)2018-06-20 18:35:00* Test Item Value Reference Range Interpretation Comme nts Lymphocytes (%) (Auto) (test code = 736-9) 29.8 18.0-39.1 [facility] HospitalMonocytes (%) (Auto)2018-06-20 18:35:00* Test Item Value Reference Range Interpretation Comme nts Monocytes (%) (Auto) (test c ode = 5905-5) 8.1 4.4-11.3 [facility] HospitalEosinophils (%) (Auto)2018-06-20 18:35:00* Test Item Value Reference Range Interpretation Comme nts Eosinophils (%) (Auto) (test code = 713-8) 1.4 0.0-6.0 [facility] HospitalBasophils (%) (Auto)2018-06-20 18:35:00* Test Item Value Reference Range Interpretation Comme nts Basophils (%) (Auto) (test c ode = 706-2) 0.3 0.0-1.0 [facility] HospitalIM GRANULOCYTES %2018-06-20 18:35:00* Test Item Value Reference Range Interpretation Comme [facility] IM GRANULOCYTES % (test code = IM GRANULOCYTES %) 0.4 0.0-1.0 [facility] HospitalNeutrophils # (Auto)2018-06-20 18:35:00* Test Item Value Reference Range Interpretation Comme nts Neutrophils # (Auto) (test c ode = 751-8) 4.6 2.1-6.9 [facility] HospitalLymphocytes # (Auto)2018-06-20 18:35:00* Test Item Value Reference Range Interpretation Comme nts Lymphocytes # (Auto) (test c ode = 97824-9) 2.3 1.0-3.2 [facility] HospitalMonocytes # (Auto)2018-06-20 18:35:00* Test Item Value Reference Range Interpretation Comme nts Monocytes # (Auto) (test code = 742-7) 0.6 0.2-0.8 [facility] HospitalEosinophils # (Auto)2018-06-20 18:35:00* Test Item Value Reference Range Interpretation Comme nts Eosinophils # (Auto) (test c ode = 711-2) 0.1 0.0-0.4 [facility] HospitalBasophils # (Auto)2018-06-20 18:35:00* Test Item Value Reference Range Interpretation Comme nts Basophils # (Auto) (test code = 704-7) 0.0 0.0-0.1 [facility] HospitalAbsolute Immature Granulocyte ([id number] 18:35:00* Test Item Value Reference Range Interpretation Comme nts Absolute Immature Granulocyt e (auto (test code = Absolute Immature Granulocyte (auto) 0.03 0-0.1 [facility]
--- NOTE | 2024-11-15 22:22 | RAD REPORT ---
EXAMINATION: ONE VIEW CHEST XR CLINICAL INDICATION: Female, 34 years old.,HTN;Chest pain TECHNIQUE: Frontal chest projection is submitted. Examination is limited by patient positioning and t echnique. COMPARISON: No prior exam. FINDINGS: The lungs are well inflated and clear. No pneumothorax or sizable effusion. The heart is normal in s ize. Mediastinal contours are unremarkable. IMPRESSION: No acute intrathoracic abnormalities.
--- NOTE | 2024-11-15 22:35 | RAD REPORT ---
EXAM: CT Head Brain Wo Cont HISTORY: high blood pressure;Headache COMPARISON: None TECHNIQUE: Multiple contiguous axial images were obtained for a CT of the brain without contrast. Sag ittal and coronal reformats were performed. One or more of the following dose reduction techniques were used: Automated exposure control, adjus tment of the mA and kV according to patient size, and iterative reconstruction. Unless otherwise specified, incidental findings do not require dedicated imaging follow-up. FINDINGS: No evidence of hydrocephalus, intracranial hemorrhage, or extra-axial fluid collection. The brain is normal in morphology. The calvarium is intact. The visualized paranasal sinuses and mastoid air cells are essentially clear . IMPRESSION: No evidence of acute intracranial abnormality.
[2024-11-15] MEDS ORDERED: cloNIDine HCL 0.1 MG TAB ONE (23:20)
[2024-11-16 00:24] LABS: Absolute Lymphocytes (CBC) 2.8 K/uL (0.7-4.9); Absolute Monocytes 0.7 K/uL (0.1-1.3); Absolute Neutrophil 5.3 K/uL (1.8-8.0); Basophils % 0.4 % (0-1.3); Eosinophils % 0.3 % (0-4.4); Hematocrit 37.6 % (36.0-45.0); Lymphocytes % 31.7 % (15.3-44.8); MCH 32.6 pg (27.0-35.0); MCHC 34.6 g/dL (32.0-36.0); MCV 94.2 fL (80-100); MPV 8.1 fL (7.6-11.3); Monocytes % 8.2 % (3.3-12.3); Neutrophils % 59.4 % (41.7-73.7); Nucleated Red Blood Cells % 0.1 % (0-0); Platelets 272 thou/uL (152-406); RBC Red Blood Cell Count 3.99 M/uL (3.86-4.86); Red Cell Distribution Width 13.1 % (12.1-15.2)
[2024-11-16 00:27] LABS: Specific Gravity 1.015 (1.005-1.030)
[2024-11-16 00:28] LABS: PT Prothrombin Time 10.5 SECONDS (9.4-12.5)
[2024-11-16 00:32] LABS: Specific Gravity 1.015 (1.005-1.030); Sqamous Epithelial <5 /HPF (None Seen); Urine Bacteria <20 /HPF (<20); Urine Bilirubin NEGATIVE (Negative); Urine Blood Negative (Negative); Urine Clarity Extremely Turbid (Clear); Urine Color Light-Orange (Yellow); Urine Culture Reflex Order NOT NEEDED; Urine Glucose NEGATIVE (Negative); Urine Ketones NEGATIVE (Negative); Urine Microscopic Reflex YN ORDER UMIC; Urine Mucus Slight /HPF (None Seen); Urine Nitrite NEGATIVE (Negative); Urine Protein NEGATIVE (Negative); Urine RBC None Seen /HPF (None Seen); Urine Urobilinogen Normal (Normal); Urine WBC <5 /HPF (<5); Urine pH 7.5 (5.0-7.0)
[2024-11-16 00:42] LABS: Anion Gap 7.5 mEq/L (5.0-15.0); BUN Blood Urea Nitrogen 11 mg/dL (7-18); Bicarbonate 28 mEq/L (21-32); Glomerular Filtration Rate 119 ml/min (=/>90); Glucose Level 95 mg/dL (74-106); NT PRO-BNP 32 pg/mL (<125); Potassium 3.5 mEq/L (3.5-5.1); Sodium Level 138 mEq/L (136-145)
[2024-11-16 00:44] LABS: Troponin High Sensitivity < 3.0 pg/mL (<58.9)
--- NOTE | 2024-11-16 01:29 | ER ---
Nurse's Notes [facility] Name: Adalgisa Rdz Age: 34 yrs Sex: Female : 1990 Arrival Date: 11/15/2024 Time: 21:14 Bed DX1 Private MD: Diagnosis: Essential (primary) hypertension Presentation: 11/15 21:35 Chief complaint: Patient states: History of HTN and today she felt dizzy and checked cm10 her blood pressure and it was elevated. Pt also reports headache and pain to left arm. Coronavirus screen: Client denies travel out of the [place] in the last 14 days. Ebola Screen: Patient denies travel to an Ebola-affected area in the 21 days before illness onset. Initial Sepsis Screen: Does the patient meet any 2 criteria? HR > 90 bpm. Does the patient have a suspected source of infection? No. Patient's initial sepsis screen is negative. Risk Assessment: Do you want to hurt yourself or someone else? Patient reports no desire to harm self or others. Onset of symptoms was November 15, 2024. 21:35 Method Of Arrival: Ambulatory cm10 21:35 Acuity: EMEKA 3 cm10 Triage Assessment: 21:38 General: Appears uncomfortable, Behavior is calm, cooperative. Neuro: No deficits cm10 noted. Level of Consciousness is awake, alert, obeys commands, Oriented to person, place, time, situation, Appropriate for age. Respiratory: No deficits noted. Airway is patent Respiratory effort is even, unlabored, Respiratory pattern is regular, symmetrical. 21:38 Pain: Complains of pain in head and chest Pain currently is 9 out of 10 on a pain cm10 scale. Quality of pain is described as pressure. Historical: - Allergies: 21:37 No Known Allergies; cm10 - Home Meds: 21:37 Lisinopril Oral [Active]; cm10 - PMHx: 21:37 Hypertensive disorder; cm10 - Immunization history:: Adult Immunizations up to date. - Infectious Disease History:: Denies. - Social history:: Smoking status: Patient denies any tobacco usage or history of. - Family history:: not pertinent. - Hospitalizations: : No recent hospitalization is reported. Screenin/06 01:05 [facility] ED Fall Risk Assessment (Adult) History of falling in the last 3 months, lg3 including since admission No falls in past 3 months (0 pts) Confusion or Disorientation No (0 pts) Intoxicated or Sedated No (0 pts) Impaired Gait No (0 pts) Mobility Assist Device Used No (0 pt) Altered Elimination No (0 pt) Score/Fall Risk Level 0 - 2 = Low Risk Oriented to surroundings, Maintained a safe environment, Educated pt \T\ family on fall prevention, incl call for assistance when getting out of bed, Assessed \T\ reinforced patient's understanding of fall precautions. Abuse screen: Denies threats or abuse. Denies injuries from another. Nutritional screening: No deficits noted. Tuberculosis screening: No symptoms or risk factors identified. Assessment: 01:05 General: Appears in no apparent distress. comfortable, Behavior is calm, cooperative. lg3 Pain: Complains of pain in chest and head Pain does not radiate. Pain began 1 day ago. Neuro: No deficits noted. Lane Agitation-Sedation Scale (RASS): 0 - Alert and Calm Level of Consciousness is awake, alert, obeys commands, Oriented to person, place, time, situation, Reports headache. Cardiovascular: No deficits noted. Reports lightheadedness, Heart tones S1 S2 present Capillary refill < 3 seconds Clubbing of nail beds is absent JVD is absent Patient's skin is warm and dry. Respiratory: No deficits noted. Airway is patent Respiratory effort is even, unlabored, Respiratory pattern is regular, symmetrical. GI: No deficits noted. No signs and/or symptoms were reported involving the gastrointestinal system. : No signs and/or symptoms were reported regarding the genitourinary system. EENT: No deficits noted. No signs and/or symptoms were reported regarding the EENT system. Derm: No deficits noted. No signs and/or symptoms reported regarding the dermatologic system. Skin is intact, is healthy with good turgor, Skin is dry, Skin is normal, Skin temperature is warm. Musculoskeletal: No deficits noted. No signs and/or symptoms reported regarding the musculoskeletal system. Circulation, motion, and sensation intact. Range of motion: intact in all extremities. 01:54 Reassessment: Patient appears in no apparent distress at this time. No changes from lg3 previously documented assessment. Patient and/or family updated on plan of care and expected duration. Pain level reassessed. Patient is alert, oriented x 3, equal unlabored respirations, skin warm/dry/pink. Vital Signs: 11/15 21:35 BP 189 / 107; Pulse 112; Resp 18; Temp 97.2(TE); Pulse Ox 97% on R/A; Weight 83.91 kg; cm10 Height 5 ft. 4 in. ; Pain 9/10; 11/16 01:01 BP 142 / 86; Pulse 86 RA; Resp 16; Pulse Ox 100% on R/A; vk 01:55 BP 134 / 88; Pulse 81; Resp 16 S; Temp 97.9(O); Pulse Ox 100% on R/A; lg3 11/15 21:35 Body Mass Index 31.75 (83.91 kg, 162.56 cm) cm10 11/15 21:35 Pain Scale: Adult cm10 ED Course: 11/15 21:18 Patient arrived in ED. gm2 21:24 Magdaleno Max MD is Attending Physician. rn 21:37 Triage completed. cm10 21:38 Arm band placed on right wrist. Patient placed in waiting room. cm10 21:55 XRAY Chest (1 view) In Process Unspecified. EDMS 22:06 CT Head Brain wo Cont In Process Unspecified. EDMS 11/16 00:45 Initial lab(s) drawn, by me, sent to lab. Urine collected: clean catch specimen, clear, kmf EKG done, by ED staff. Inserted saline lock: 22 gauge in left antecubital area, using aseptic technique. Blood collected. Flushed with 10 mL NS. 01:05 Patient has correct armband on for positive identification. Warm blanket given. lg3 01:05 Patient maintains SpO2 saturation greater than 95% on room air. lg3 01:55 No provider procedures requiring assistance completed. IV discontinued, intact, lg3 bleeding controlled, No redness/swelling at site. Pressure dressing applied. Administered Medications: 11/15 23:57 Drug: cloNIDine PO 0.1 mg PO once Route: PO; lg3 11/16 01:55 Follow up: Response: No adverse reaction lg3 Medication: 01:05 VIS not applicable for this client. lg3 Outcome: 01:28 Discharge ordered by . rn 01:55 Discharged to home ambulatory, lg3 01:55 Condition: stable 01:55 Discharge instructions given to patient, Instructed on discharge instructions, follow up and referral plans. Demonstrated understanding of instructions, follow-up care, 01:56 Patient left the ED. lg3 Signatures: Dispatcher [employer] EDMS Magdaleno Max MD MD rn Able, Lacie, RN RN lg3 Joann Villa RN RN 10 Martha Ramirez 2 Valentina Miramontes [facility] Diya Enriquez Corrections: (The following items were deleted from the chart) 11/15 21:38 21:35 BP 189 / 107; Pulse 112bpm; Resp 18bpm; Pulse Ox 97% RA; Temp 97.2F Temporal; [id number] 11/16 01:12 01:11 Initial lab(s) drawn, by ga, sent to lab. Urine collected: clean catch specimen, [facility] clear, EKG done, by ED staff, [facility] 01:12 01:11 Inserted saline lock: 22 gauge in left antecubital area, using aseptic technique. [facility] Blood collected. Flushed with 10 mL NS f
--- NOTE | 2024-11-16 01:29 | EDPHYS ---
Physician Documentation [facility] Name: Adalgisa Rdz Age: 34 yrs Sex: Female : 1990 Arrival Date: 11/15/2024 Time: 21:14 Bed DX1 Private MD: ED Physician Magdaleno Max HPI: 11/15 22:16 This 34 yrs old Female presents to ER via Ambulatory with complaints of High Blood rn Pressure. 22:16 The patient has elevated blood pressure and discovered this at home. Onset: The rn symptoms/episode began/occurred 9 hour(s) ago. Modifying factors:. Associated signs and symptoms: Pertinent positives: chest pain, headache, lightheadedness, nausea, Pertinent negatives: visual changes. Severity of symptoms: At its worst the blood pressure was moderate, in the emergency department the blood pressure is unchanged. The patient has experienced similar episodes in the past. Patient reports thinks that she is having blood pressure problems, reports blood pressure at home was 200/100, takes lisinopril 10 mg once daily, did not take extra medication prior to coming in. Reports mild head pressure associated with dizziness and generalized malaise, as well as nausea. Also reports chest heaviness. No known cardiac disease and no family history of cardiac disease in their 30s. No trauma. No focal neurological deficit.. Historical: - Allergies: 21:37 No Known Allergies; cm10 - Home Meds: 21:37 Lisinopril Oral [Active]; cm10 - PMHx: 21:37 Hypertensive disorder; cm10 - Immunization history:: Adult Immunizations up to date. - Infectious Disease History:: Denies. - Social history:: Smoking status: Patient denies any tobacco usage or history of. - Family history:: not pertinent. - Hospitalizations: : No recent hospitalization is reported. ROS: 22:16 Constitutional: Negative for fever, chills, and weight loss, Neck: Negative for injury, rn pain, and swelling, Cardiovascular: Negative for palpitations, and edema, Respiratory: Negative for shortness of breath, cough, wheezing, and pleuritic chest pain, Abdomen/GI: Negative for abdominal pain, vomiting, diarrhea, and constipation, Back: Negative for injury and pain, MS/Extremity: Negative for injury and deformity, Skin: Negative for injury, rash, and discoloration, Neuro: Negative for weakness, numbness, tingling, and seizure, Exam: 22:16 Constitutional: This is a well developed, well nourished patient who is awake, alert, rn and in no acute distress. Ambulatory to triage without assistance Head/Face: Normocephalic, atraumatic. Neck: Trachea midline, no masses palpated, and no cervical lymphadenopathy. Supple, full range of motion without nuchal rigidity, or vertebral point tenderness. No Meningismus. Vital Signs: 21:35 BP 189 / 107; Pulse 112; Resp 18; Temp 97.2(TE); Pulse Ox 97% on R/A; Weight 83.91 kg; cm10 Height 5 ft. 4 in. ; Pain 9/10; 11/16 01:01 BP 142 / 86; Pulse 86 RA; Resp 16; Pulse Ox 100% on R/A; vk 01:55 BP 134 / 88; Pulse 81; Resp 16 S; Temp 97.9(O); Pulse Ox 100% on R/A; lg3 11/15 21:35 Body Mass Index 31.75 (83.91 kg, 162.56 cm) cm10 11/15 21:35 Pain Scale: Adult cm10 MDM: 11/15 21:24 Medical Screening Exam initiated rn 11/16 01:27 Differential diagnosis: hypertensive crisis, Malignant HTN, intracerebral hemorrhage. rn Data reviewed: vital signs, nurses notes, lab test result(s), EKG, radiologic studies, CT scan, plain films, and as a result, I will discharge patient. Counseling: I had a detailed discussion with the patient and/or guardian regarding the historical points, exam findings, and any diagnostic results supporting the discharge/admit diagnosis, the presence of at least one elevated blood pressure reading (>120/80) during this emergency department visit, lab results, the need for outpatient follow up, to return to the emergency department if symptoms worsen or persist or if there are any questions or concerns that arise at home. Special discussion: I have referred the patient to see his PCP for further evaluation of high blood pressure. I discussed with the patient/guardian in detail that at this point there is no indication for admission to the hospital. It is understood, however, that if the symptoms persist or worsen the patient needs to return immediately for re-evaluation. Based on the history and exam findings, there is no indication for further emergent testing or inpatient evaluation. I discussed with the patient/guardian the need to see the primary care provider for further evaluation of the symptoms. ED course: No acute findings and workup. No evidence of endorgan damage. Blood pressure currently 142/86 temp patient feels better. I have personally reviewed all of the results, including but not limited to blood tests and imaging deemed necessary to safely discharge this patient at this time. All results given to and printed out for patient. I personally went over all the results with the patient and answered all questions. Patient will follow-up with PCP and or specialist as discussed. Return precautions given and understood.. 11/15 21:40 Order name: Basic Metabolic Panel; Complete Time: 00:45 rn 11/15 21:40 Order name: CBC with Diff; Complete Time: 00:45 rn 11/15 21:40 Order name: NT PRO-BNP; Complete Time: 00:45 rn 11/15 21:40 Order name: PT-INR; Complete Time: 00:45 rn 11/15 21:40 Order name: Troponin HS; Complete Time: 00:45 rn 11/15 21:40 Order name: Test, Urine; Complete Time: 00:45 rn 11/15 21:40 Order name: Urinalysis w/ reflexes; Complete Time: 00:45 rn 11/15 21:40 Order name: CT Head Brain wo Cont; Complete Time: 22:38 rn 11/15 21:40 Order name: XRAY Chest (1 view); Complete Time: 22:38 rn 11/15 21:40 Order name: EKG; Complete Time: 21:40 rn 11/15 21:40 Order name: IV Start; Complete Time: : rn 11/15 21:40 Order name: EKG - Nurse/Tech; Complete Time: : rn 11/15 21:40 Order name: Labs collected and sent; Complete Time: : rn 11/15 21:40 Order name: O2 Per Protocol; Complete Time: : rn 11/15 21:40 Order name: O2 Sat Monitoring; Complete Time: : rn Administered Medications: 11/15 23:57 Drug: cloNIDine PO 0.1 mg PO once Route: PO; lg3 11/16 01:55 Follow up: Response: No adverse reaction lg3 Disposition Summary: 11/16/24 01:28 Discharge Ordered Notes: Location: Home rn Problem: new rn Symptoms: have improved rn Condition: Stable rn Diagnosis - Essential (primary) hypertension rn Followup: rn - With: Private Physician - When: As needed - Reason: Recheck today's complaints, Re-evaluation by your physician Discharge Instructions: - Discharge Summary Sheet rn - Hypertension, Adult rn - How to Take Your Blood Pressure, [id number] rn - Managing Your Hypertension rn Forms: - Medication Reconciliation Form rn - Antibiotic rn cvor - Prescription Opioid Use rn - Patient Portal Instructions rn - Leadership Thank You Letter rn Signatures: Dispatcher [employer] Magdaleno Ryan MD MD rn Able, Lacie RN RN lg3 Joann Villa RN RN cm10
[2024-11-16 02:20] VITALS: O2SAT 100
[2024-11-16 02:22] VITALS: BP 134/88; TEMP 97.9
--- NOTE | 2024-11-16 11:26 | EKG ---
Test Date: 2024-11-15 Test Time: 23:55:01 Wire Roller: ALEN MEASUREMENT RESULTS: Intervals: Rate: 85 ID: [id number] QRSD: 90 QT: 376 QTc: 447 [place]: P: 74 ID: [id number] QRS: 84 T: 72 INTERPRETIVE STATEMENTS: Normal sinus rhythm Normal ECG No previous ECG available for comparison Electronically Signed On 11-16-24 11:24:17 MIXING SUPERVISOR by Melo Sommers
== END 2024-11-16 01:56 | disposition home or self-care (01) ==
LOC: ER 21:14
DX: I10 Essential (primary) hypertension (principal)
CPT/HCPCS: 36415; 70450; 71045; 80048; 81001; 81025; 83880; 84484; 85025; 85610; 93005; 99284